=== PATIENT | male | born 1975 | race Hispanic/Latino ===

== ENCOUNTER 2019-06-27 15:01 | Outpatient (CLI) | payer OTHER ==
--- NOTE | 2019-06-27 16:22 | RAD ---
FISHER SINUS 06/27/19 PROVIDED CLINICAL HISTORY: History of metal in the eye. FINDINGS: Frontal view of the orbits was obtained for exclusion of metallic foreign body. There is no evidence for such. IMPRESSION: As above. POS: OFF
[2019-06-27] MEDS ORDERED: Gadobenate Dimeglumine 529 MG/1 ML (20ML VIAL) ONE (18:22)
--- NOTE | 2019-06-28 09:44 | MRI ---
MRI OF RIGHT ELBOW WITH AND WITHOUT IV CONTRAST: DATE: 06/27/2019. PROVIDED CLINICAL HISTORY: Epicondylitis. FINDINGS: The biceps, brachialis, and triceps insertions appear normal. The common flexor tendon origin appear s normal. There is increased signal intensity on fluid sensitive sequences reaching true fluid signa l intensity involving the undersurface origin fibers of the common extensor tendon compatible with pa rtial tearing. There is edema within the proximal extensor digitorum longus muscle. Regional marrow and muscular signal appear otherwise normal. There is a small elbow joint effusion. The medial and lateral elbow ligaments appear intact. The courses of the regional major neurovascular structures appear unremarkable. No concerning contra st enhancement is evident. IMPRESSION: 1. Partial thickness tearing involving the common extensor tendon origin. 2. Low-grade muscular strain involving extensor digitorum. 3. Small elbow joint effusion. POS: OFF
== END 2019-06-27 15:02 | disposition home or self-care (01) ==
LOC: BICMRI 15:01
PROVIDERS: ATTEND Nurse Practitioner Family
DX: M77.11 Lateral epicondylitis, right elbow (principal); S56.511A Strain of other extensor muscle, fascia and tendon at forearm level, right arm, initial encounter
CPT/HCPCS: 70210; A9577

== ENCOUNTER 2019-07-19 15:00 | Outpatient (CLI) | payer BC ==
--- NOTE | 2019-07-19 16:43 | MRI ---
EXAM: RIGHT SHOULDER MRI WITHOUT IV CONTRAST: 07/19/19 HISTORY: Right shoulder pain, traumatic tear right rotator cuff. FINDINGS: AC joint arthrosis with some downsloping of the anterior and lateral acromion. There is fluid in the subacromial bursa. Full thickness essentially nonretracted tear of the supraspinatus tendon as well as partial thickness undersurface and bursal sided surface tearing of the infraspinatus tendon. Poorl y defined subscapularis tendon with tendinopathy. The biceps tendon is poorly seen in the intra-artic ular region but is intact within the bicipital groove. No acute osteochondral defect. Evidence for a bnormal signal involving the superior labrum extending somewhat posteriorly, evidence for a SLAP tear . IMPRESSION: Full thickness essentially nonretracted tear of the supraspinatus tendon as well as partial thickness tearing of the infraspinatus tendon without significant retraction. Subscapularis tendinopathy. Poo rly defined biceps tendon within the intra-articular region. Rotator cuff muscles are within normal l imits of signal and volume. No significant acute osteochondral defect. Anterior and lateral downslopi ng of the lateral acromion. POS: TPC
== END 2019-07-19 15:01 | disposition home or self-care (01) ==
LOC: SCSMRI 15:00
PROVIDERS: ATTEND Orthopaedic Surgery
DX: S46.011A Strain of muscle(s) and tendon(s) of the rotator cuff of right shoulder, initial encounter (principal); S46.811A Strain of other muscles, fascia and tendons at shoulder and upper arm level, right arm, initial encounter

== ENCOUNTER 2019-09-13 05:51 | Day surgery (SDC) | payer BC ==
[2019-09-12 09:52] VITALS: BMI 20.7
[2019-09-13] MEDS ORDERED: Ropivacaine 0.2% HCl/PF 20 ML ONE (06:09)
[2019-09-13] MEDS ORDERED: Lidocaine 1% (PF) 30 ML VIAL ONE (06:09)
[2019-09-13] MEDS ORDERED: Fentanyl 100 MCG/2 ML VIAL ONE ×3 (06:09→10:22)
[2019-09-13] MEDS ORDERED: Midazolam HCl 2 mg/2 ml Vial ONE (06:09)
[2019-09-13 06:41] LABS: #Eosinphils 0.1 thou/uL (0.0-0.7); #Lymphocytes 1.7 thou/uL (1.20-3.40); #Monocytes 0.5 thou/uL (0.11-0.59); #Neutrophils 2.4 thou/uL (1.40-6.50); %Basophils 1.1 % (0.0-1.0); %Eosinophils 1.7 % (0.0-10.0); %Lymphocytes 35.9 % (21.0-51.0); %Monocytes 10.1 % (0.0-10.0); %Neutrophils 51.3 % (42.0-75.0); Hemoglobin 16.3 g/dL (14.0-18.0); Mean Corpuscular HGB CONC 34.5 g/dL (32.0-36.0); Mean Corpuscular Hemoglobin 31.9 pg (27.0-31.0); Mean Corpuscular Volume 92.6 fL (78.0-98.0); Mean Platelet Volume 6.9 fL (7.4-10.4); Platelet Count 193 thou/uL (130-400); RBC Distribution Width 11.6 % (11.5-14.5); Red Blood Cell (RBC) Count 5.11 mill/uL (4.70-6.10); White Blood Cell (WBC) Count 4.6 thou/uL (4.8-10.8)
[2019-09-13 07:09] LABS: Anion Gap 11 mmol/L (10-20); BUN (Urea Nitrogen) 11 mg/dL (8.9-20.6); Calc. Creatinine Clearance 128 mL/min (70-130); Calcium 9.2 mg/dL (7.8-10.44); Carbon Dioxide 26 mmol/L (22-29); Chloride 106 mmol/L (98-107); Estimated GFR-MDRD Greater than 90; Glucose 108 mg/dL (70-105); Potassium 3.8 mmol/L (3.5-5.1); Sodium 139 mmol/L (136-145)
[2019-09-13] MEDS ORDERED: Dexamethasone 20 MG/5 ML VIAL ONE ×2 (08:36→10:58)
[2019-09-13] MEDS ORDERED: PROPOFOL 20 ML ONE (08:36)
[2019-09-13] MEDS ORDERED: Ondansetron PF 4 MG/2 ML Vial ONE ×2 (08:36→10:58)
[2019-09-13] MEDS ORDERED: Glycopyrrolate 0.2 MG/ML 5 ML SYRINGE ONE (09:07)
[2019-09-13] MEDS ORDERED: Ondansetron PF 4 MG/2 ML Vial IVP PRN (10:17)
[2019-09-13] MEDS ORDERED: HYDROcodone/Acetaminophen 10/325 mg Tablet PO PRN ×2 (10:17)
[2019-09-13] MEDS ORDERED: Promethazine HCl 25 MG/ML VIAL IM PRN (10:17)
[2019-09-13] MEDS ORDERED: Ketorolac Tromethamine 30 MG/ML VIAL IVP PRN (10:17)
[2019-09-13] MEDS ORDERED: Ropivacaine 0.2% 550 ML 550 ML NERVE BLCK SCH (10:17)
[2019-09-13] MEDS ORDERED: Zolpidem Tartrate 5 MG TAB PO PRN (10:17)
[2019-09-13] MEDS ORDERED: traMADol HCl 50 MG TAB PO PRN ×2 (10:17)
[2019-09-13] MEDS ORDERED: Fentanyl 100 MCG/2 ML VIAL IV PRN (10:18)
[2019-09-13] MEDS ORDERED: Acetaminophen 325 MG TAB PO PRN (10:21)
[2019-09-13] MEDS ORDERED: ePHEDrine/0.9% NaCl/PF SYRINGE 50 mg/10 ml ONE (10:58)
[2019-09-13] MEDS ORDERED: PHENYLEPHRINE-NS 100 MCG/ML 10 ML SYRINGE ONE (10:58)
[2019-09-13] MEDS ORDERED: Ropivacaine 0.2% HCl/PF (40 MG/20 ML VIAL) ONE (10:58)
[2019-09-13] MEDS ORDERED: Ropivacaine 0.5% HCl/PF (150 MG/30 ML VIAL) ONE (10:58)
[2019-09-13] MEDS ORDERED: PROPOFOL 200 MG/20 ML VIAL ONE (10:58)
[2019-09-13] MEDS ORDERED: Rocuronium Bromide 10 MG/ML (10ML VIAL) ONE (10:58)
--- NOTE | 2019-09-13 12:49 | OP ---
DATE OF PROCEDURE: 09/13/2019 PREOPERATIVE DIAGNOSES: 1. Rotator cuff tear. 2. Biceps tendinitis. 3. Impingement of right shoulder. POSTOPERATIVE DIAGNOSES: 1. Rotator cuff tear. 2. Biceps tendinitis. 3. Impingement of right shoulder. PROCEDURES PERFORMED: Right shoulder arthroscopic cervical decompression, right shoulder arthroscopic rotator cuff repair, right shoulder biceps tenodesis. ANESTHESIA: General. BLOOD LOSS: Minimal. SPECIMEN: None. COMPLICATIONS: None. [employer] UNDERWRITER: Kevin Kramer PA-C DESCRIPTION OF PROCEDURE: The patient was taken to the operative room where general anesthesia was induced. The patient was placed in left lower decubitus position. Right arm was placed in 15 pounds of traction, prepped and draped in usual sterile fashion. Scope was placed in glenohumeral joint and really did not have much arthritis. He did have significantly degraded biceps tendon, almost torn through in some portions. I tagged this and amputated it from the labrum and smoothed this with a shaver. The rotator cuff was completely torn, . Scope was placed in the subacromial bursa and performed bursectomy, CA ligament was taken down. Hemostasis was obtained, performed anterior and inferior acromioplasty using arthroscopic michael. I freshened the greater tuberosity with a michael. Two corkscrew suture anchors from [employer] were placed in the greater tuberosity and sutures were passed and tied with a good watertight repair. The biceps tendon was delivered through lateral portal and prepared for biceps tenodesis using a FiberWire suture, sized and found to be a size 8, I drilled a size 8 hole at proximal humerus and deployed the tendon into the hole and used an 8 mm [employer] Bio-Tenodesis screw. Shoulder was then drained. Portals were closed with nylon suture. Sterile dressings were applied. There were no complications. Job ID: [id number]
== END 2019-09-13 13:30 | disposition home or self-care (01) ==
LOC: SDC 05:51
PROVIDERS: ATTEND Orthopaedic Surgery
PROC: 0LQ14ZZ Repair Right Shoulder Tendon, Percutaneous Endoscopic Approach (ICD-10-PCS; principal; 2019-09-13)
PROC: 0RHJ44Z Insertion of Internal Fixation Device into Right Shoulder Joint, Percutaneous Endoscopic Approach (ICD-10-PCS; principal; 2019-09-13)
PROC: 0LS14ZZ Reposition Right Shoulder Tendon, Percutaneous Endoscopic Approach (ICD-10-PCS; principal; 2019-09-13)
PROC: 0RNJ4ZZ Release Right Shoulder Joint, Percutaneous Endoscopic Approach (ICD-10-PCS; principal; 2019-09-13)
PROC: 3E0T3BZ Introduction of Anesthetic Agent into Peripheral Nerves and Plexi, Percutaneous Approach (ICD-10-PCS; principal; 2019-09-13)
DX: M75.121 Complete rotator cuff tear or rupture of right shoulder, not specified as traumatic (principal); S46.211A Strain of muscle, fascia and tendon of other parts of biceps, right arm, initial encounter; M75.21 Bicipital tendinitis, right shoulder; M25.811 Other specified joint disorders, right shoulder; G89.18 Other acute postprocedural pain; F17.210 Nicotine dependence, cigarettes, uncomplicated; E78.5 Hyperlipidemia, unspecified; Z79.52 Long term (current) use of systemic steroids; W19.XXXA Unspecified fall, initial encounter
CPT/HCPCS: 80048; 85025; A4306; C1713; J0131; J0690; J1100; J2001; J2250; J2405; J2704; J2795; J3010

== ENCOUNTER 2023-08-24 23:31 | Emergency (ER) | payer SELFPAY ==
[2023-08-25 01:08] LABS: #Eosinphils 0.1 thou/uL (0.0-0.7); #Monocytes 0.6 thou/uL (0.11-0.59); #Neutrophils 2.5 thou/uL (1.40-6.50); %Basophils 0.6 % (0.0-1.0); %Eosinophils 1.5 % (0.0-10.0); %Lymphocytes 39.7 % (21.0-51.0); %Monocytes 11.3 % (0.0-10.0); %Neutrophils 46.7 % (42.0-75.0); Hematocrit 45.1 % (42.0-52.0); Hemoglobin 15.6 g/dL (14.0-18.0); Mean Corpuscular HGB CONC 34.6 g/dL (32.0-36.0); Mean Corpuscular Volume 92.6 fl (78.0-98.0); Mean Platelet Volume 9.1 fL (7.4-10.4); Platelet Count 213 10x3/uL (130-400); RBC Distribution Width 12.9 % (11.5-14.5); Red Blood Cell (RBC) Count 4.87 mill/uL (4.70-6.10); White Blood Cell (WBC) Count 5.4 10x3/uL (4.8-10.8)
[2023-08-25 01:12] LABS: Bacteria/HPF None Seen HPF (None Seen); Bilirubin Negative (Negative); Blood, Urine Negative (Negative); CAUTI Indications for Culture Pelvic or flank pain; Clarity Clear (Clear); Glucose, Urine (Dipstick) Normal (Negative); Ketone, Urine Negative (Negative); Leukocyte Negative Leu/uL (Negative); Nitrite Negative (Negative); Protein, Urine (Dipstick) 30 mg/dL (Neg-Trace); RBC/HPF 0-3 HPF (0-3); Specific Gravity, Urine 1.025 (1.002-1.036); Squamous Epithelial 0-3 HPF (0-3); Urobilinogen Normal mg/dL (Less than 2); WBC/HPF 0-3 HPF (0-3)
[2023-08-25 01:14] LABS: Urine Culture Reflex No No
[2023-08-25 01:32] LABS: ALT (SGPT) 45 U/L (8-55); AST (SGOT) 29 U/L (5-34); Albumin 4.5 g/dL (3.5-5.0); Alkaline Phosphatase 70 U/L (40-110); Anion Gap 15 mmol/L (10-20); BUN (Urea Nitrogen) 12 mg/dL (8.9-20.6); Bilirubin, Total 0.5 mg/dL (0.2-1.2); Calc. Creatinine Clearance 0 mL/min (70-130); Calcium 9.7 mg/dL (7.8-10.44); Carbon Dioxide 25 mmol/L (22-29); Chloride 101 mmol/L (98-107); Estimated GFR 82; Globulin 3.4 g/dL (2.4-3.5); Glucose 122 mg/dL (70-105); Lipase 32 U/L (8-78); Potassium 4.1 mmol/L (3.5-5.1); Protein, Total 7.9 g/dL (6.0-8.3); Sodium 137 mmol/L (136-145)
[2023-08-25 01:35] LABS: Troponin I Less than 0.010 ng/mL (< 0.028)
[2023-08-25] MEDS ORDERED: Ketorolac Tromethamine 30 MG/ML VIAL ONE (01:45)
[2023-08-25] MEDS ORDERED: Sucralfate 1 GM/10 ML UDCUP ONE (01:45)
[2023-08-25] MEDS ORDERED: Lidocaine 2% Viscous Solution 10 ML, Aluminum & Magnesium Hydroxide 30 ML SSW SCH (02:00)
== END 2023-08-25 03:09 | disposition home or self-care (01) ==
LOC: ERS 23:31
DX: K80.00 Calculus of gallbladder with acute cholecystitis without obstruction (principal); F17.200 Nicotine dependence, unspecified, uncomplicated
CPT/HCPCS: 36415; 71046; 76705; 80053; 81001; 83690; 84484; 85025; 93005; 96372; J1885